=== PATIENT | female | born 1955 | race Caucasian/White ===

== ENCOUNTER 2019-04-17 07:30 | Inpatient (IN) | payer OTHER, SELFPAY ==
[2019-04-02 09:33] VITALS: BMI 29.1
[2019-04-17] VITALS (16 sets, daily range): BP systolic 102–135; BP diastolic 53–82; PULSE 53–94; RESP 14–20; TEMP 36.4–37.4; O2SAT 97–100; BMI 29.1
--- NOTE | 2019-04-17 06:00 | DI.RAD.S_ITS ---
PROCEDURE: XR KNEE RT 1TO2V INDICATIONS: status post Right TKA TECHNIQUE: 2 view(s) of the knee acquired. COMPARISON: None. FINDINGS: Bones: Patient is status post knee joint arthroplasty. Hardware components are in expected positions. Visualized bony structures are intact. Soft tissues: Overlying postoperative changes are noted. IMPRESSION: Normal alignment after right total knee arthroplasty. Dictated by: Jon Rain M.D. on 04/17/2019 at 11:17 Approved by: Jon Rain M.D. on 04/17/2019 at 11:17
[2019-04-17] MEDS: LACTATED RINGERS 1,000 ML 42 ML IV ×2 (08:37→09:58)
[2019-04-17] MEDS: ACETAMINOPHEN 325 MG TABLET 975 MG PO (08:38)
[2019-04-17] MEDS: PREGABALIN 75 MG CAPSULE PO (08:38)
[2019-04-17] MEDS: CELECOXIB 200 MG CAPSULE PO (08:38)
--- NOTE | 2019-04-17 08:45 | PM.PREOP ---
Pre-operative Note Interval Note History & Physical reviewed/Exam performed by Physician: Yes Changes to H&P: No
--- NOTE | 2019-04-17 08:48 | PM.OP.1 ---
Operative Date/Time/Diagnoses Date of procedure: 04/17/19 Time of procedure: 10:30 Pre-op diagnosis: Right knee osteoarthritis Post-op diagnosis: same Procedure & Clinicians Procedure: Right total knee arthroplasty Same procedure as scheduled: Yes Indications: The patient presents today for total knee arthroplasty after failure of conservative treatment. The nature of the procedure including the risks and benefits, alternatives, postoperative course and expected outcome were discussed and all questions answered. Consent was obtained. Operative site confirmed and marked. Surgeon: Jt Beltran Network Support Technician: Enrique Guillaume Anesthesia Type: General and Local Operative Notes Findings: Standard tibial and femoral cuts were made taking about 10 mm off the less affected lateral side. The MCL was deficient so an 11 mm constrained polyethylene insert was used which gave good stability. Patellar tracking was excellent. Prosthetic devices, grafts, tissues, transplants, or devices: [employer] Jourmoriah BCS: 5 femoral component, 4 tibial component, 11 mm BCS constrained polyethylene tray and 32 x 9 mm round patella Applied: implant(s) Estimated Blood Loss (mL): 10 Blood products transfused: none Tourniquet time (min): 75 Procedure in detail: The patient was taken to the operative suite and placed under anesthesia. The patient was given prophylactic antibiotics prior to surgery. The patient was also given tranexamic acid, 1 g, just prior to surgery for postoperative hemostasis. The lateral knee was prepped and the joint injected with 20 mL of 1% Lidocaine with epinephrine. The knee was then prepped and draped in usual sterile fashion. The leg was exsanguinated with an Esmarch dressing and the tourniquet raised to 250 torr. A 15 cm anterior incision was made. Next a medial trivector arthrotomy was made. The extensor mechanism was marked to ensure accurate repair. Initial exposing dissection was carried out medially and laterally. The knee was then flexed and the intramedullary femoral guide arina placed. The distal femoral cut was made in 6? of valgus at the +0 position. The femoral size was measured and the appropriate cutting block was then placed and the anterior, posterior and chamfer cuts made. The intramedullary tibial alignment arina was then placed. The guide was set to remove approximately 10 mm from the less affected lateral side. The proximal tibial cut was then made with an oscillating saw. All meniscus and bony debris was then removed. Posterior femoral osteophytes removed with a curved osteotome. Flexion extension gaps were checked. The flexion extension gaps were well balanced. However the MCL was deficient so there was some increased medial as opposed to lateral laxity. The soft tissues were then injected with a combination of 20 mL of half percent Marcaine with epinephrine and 20 mL of Exparel. The trial components were then placed. The knee was then extended and the patellar thickness was measured and a cut made removing approximately 9 mm of bone. The patella was then sized and drilled. Some excess lateral bone was excised and the patellofemoral ligament released. The knee went into full extension and flexion beyond 130?. There was good medial-lateral balance throughout motion with the 11 mm constrained implant. Patellar tracking was excellent. The trial components were removed and the knee was cleansed with Pulsavac irrigation and dried. The final components were cemented with high viscosity vacuum mixed bone cement with antibiotics. The joint was filled with a dilute Betadine solution. The knee was held in extension and the patellar clamped until the cement was adequately cured. The knee was then irrigated. The extensor mechanism was closed with 5 interrupted #1 Vicryl sutures and a running Quill suture at approximately 90 degrees of flexion. The joint was then injected with a combination of 1 g of tranexamic acid and 20 mL of quarter percent Marcaine with epinephrine. The subcutaneous tissue was closed with 2 0 Vicryl. The skin was closed with absorbable subcuticular sutures and surgical adhesive. An Aquacel dressing and Doug wrap were then applied. The patient tolerated the procedure well and was returned to recovery room in good condition. Complications: none Post-operative Condition: stable Disposition: PACU Plan for aftercare: [facility] protocol for total knee arthroplasty.
[2019-04-17] MEDS: CEFAZOLIN 2 GM/100 ML FROZ.PIGGY IV ×2 (08:56→18:01)
[2019-04-17] MEDS: LIDOCAINE 1% W/EPI 20 ML INJ (09:15)
[2019-04-17] MEDS: TRANEXAMIC ACID 1,000 MG VIAL 1000 MG INJ (09:16)
--- NOTE | 2019-04-17 09:25 | SUR.OPER ---
Supine on padded OR bed. Pillow under head, arms secured on padded armboards <90 degree abduction. Safety belt across torso. Non-operative leg secured with tape over blanket over lower leg. Operative leg secured in DeMayo/Aleks positioner. Foam padded brace at thigh of operative leg.
[2019-04-17] MEDS: BUPIVACAINE 0.25% W/ EPI (PF) 40 ML, BUPIVACAINE LIPOSOME 266 MG, SODIUM CHLORIDE 0.9% ... INJ (09:36)
[2019-04-17] MEDS: BUPIVACAINE 0.25% W/ EPI (PF) 20 ML, TRANEXAMIC ACID 1,000 MG, SODIUM CHLORIDE 0.9% 10 ML INJ (09:37)
[2019-04-17] MEDS: SODIUM CHLORIDE IRRIG SOLUTION 250 ML, POVIDONE-IODINE SPONGE STICKS 1 APPLIC IRR (09:41)
--- NOTE | 2019-04-17 11:20 | SUR.PHASEI ---
Normal pacu stay. Transported to room 221 on room air by shalonda. Pt left in stable condition.
[2019-04-17] MEDS: LACTATED RINGERS 1,000 ML 125 ML IV ×2 (12:15→20:38)
--- NOTE | 2019-04-17 12:37 | PC.NURSE ---
Addendum entered by Verito Yanez R.N. 04/17/19 14:35: GI -pt is hungry and janeth juice and crackers, added sandwich and applesauce and given scheduled ibuprofen for discomfort 3 on scale 0/10. Original Note: POST OP ARRIVAL 1130 - pt arrived via bed alert, states no discomfort, does have limited sensation r thigh, to calf, able to wiggle toes on command, hr 56, ra 99%, scd's placed, aquacell w/brenda wrap over cdi, ice pack at knee, + bt, denies nausea, no flatus yet, started with ice chips and then juice and crackers.
[2019-04-17] MEDS: IBUPROFEN 400 MG TABLET PO ×3 (13:48→20:38)
--- NOTE | 2019-04-17 14:39 | PT.IIE ---
Current Diagnoses Unilateral primary osteoarthritis, right knee (04/17/19) Unilateral post-traumatic osteoarthritis, right knee (04/17/19) Other tear of medial meniscus, current injury, right knee, initial encounter (04/17/19) Surgery Performed Operation Date: 04/17/19 08:45 Actual Procedures p Total Knee Arthroplasty(Right) - Jt Beltran MD Surgical History (Last Updated 04/02/19 @ 09:48 by Nancy Lakhani RN) H/O: section (Acute) Hx of bariatric surgery (Acute ~12/2017) Hx of bilateral cataract extraction (Acute) Hx of breast surgery (Acute) Hx of eye surgery (Acute) Hx of foot surgery (Acute) Medical History (Last Updated 04/11/19 @ 12:35 by Nancy Lakhani RN) HLD (hyperlipidemia) (Acute) HTN (hypertension) (Acute) Mild carotid artery disease (Acute) Pericardial cyst (Acute ~2018) Skin cancer of face (Acute) Sleep apnea (Acute) Physical Therapy Inpatient Evaluation/Re-Eval M1 PT/OT-IP Prior Functional Status Start: 04/17/19 16:29 Freq: NEEDED Status: Active Protocol: Document 04/17/19 14:39 AB (Rec: 04/17/19 16:45 AB [id number]) Medical Review Prior Functional Status Medical History Reviewed No Communication able to make needs known Mobility and Gait pt stated that she is independent with all mobilities and ambulation without AD Social History Household Members none Living Arrangements House Number of Floors (Floors) Two Floors Number of Stairs To Enter/Railing? 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 Afterwards, friends will be able to assist with and can stay if needed. M2 PT-IP Current Condition Start: 04/17/19 16:29 Freq: NEEDED Status: Active Protocol: Document 04/17/19 14:39 AB (Rec: 04/17/19 16:45 AB [id number]) Physical Therapy Current Condition Current Condition Evaluation Date 04/17/19 Treatment Diagnosis s/p R TKA; difficulty in walking Onset Date 04/17/2019 Weight Bearing Status Weight Bearing Status Weight Bear as Tolerated Allowed Weight Bearing Amount (enter % WBAT RLE or #) (%) M3 PT-IP Subjective Start: 04/17/19 16:29 Freq: NEEDED Status: Active Protocol: Document 04/17/19 14:39 AB (Rec: 04/17/19 16:45 AB [id number]) Subjective Physical Therapy Visit Type Type Initial Evaluation Visit Start Time 14:39 Visit Stop Time 15:38 Total Visit Minutes 59 Number of LEATHER TACKER Visits 0 Physical Therapy Visit Comments Patient Comments agreeable to do PT Therapy Pain Assessment Pain When Pain Assessed At Rest Pain Present Pain Present Pain Reported Location Right Knee Intensity 4 Scale Used Numeric (1 - 10) Pain Management Techniques Apply Cold,Re-positioning, Timing of Activity with Medications M4 PT-IP Mobility and Gait Start: 04/17/19 16:29 Freq: NEEDED Status: Active Protocol: Document 04/17/19 14:39 AB (Rec: 04/17/19 16:45 AB [id number]) PT-Bed Mobility Assessment Supine to Sit Supine to Sit Standby Assistance Sit to Supine Sit to Supine Minimal Assistance Scooting Scooting to Edge of Bed Standby Assistance PT-Transfer Assessment Sit to and From Stand Sit to and from Stand Minimal Assistance,1 Person Assistance,Use of Upper Extremities Equipment Transfer Assistive Device Gait Belt,Front Wheeled Walker Orthotic/Prosthetic Devices or Brace: No Transfers Transfer Destination Bedside Commode Transfer Technique Stand Step Pivot Transfer Ability Level of Assist Moderate Assistance,1 Person Assistance,Use of Upper Extremities Comments Mobility Comments completed supine to sit SBA and was able to sit on EOB SBA . postiioned on EOB SBA. completed sit to stand from EOB min A and cues. pt unable to control her bladder and stated that she cannot feel anything in there. instructed to sit back on bed. positioned bedside commode next to bed. pt completed sit to stand again min A and completed stand step transfer using FWW mod A and cues. asked NAC for assistance. assisted pt with hygiene care and dressing. completed sit to stand from the bedside commode min A and cues; was able to maintain standing min A and cues while completing hygiene care and brief management. pt completed step transfer to the bed using FWW mod A and cues. Cleared floor for safe ambulation. pt agreed to ambulate in room an dcompleted ~ 20 ft using FWW. slight R knee buckling towards end stance and cued to recruit R quads. pt requested to go back to bed. and completed sit to supine min A. positioned pt in bed. call light and table placed within reach. ice pack provided. Gait Assessment Gait Gait Assistance Required: Moderate Assistance,1 Person Assist Distance (Feet) 20 Able to Maintain Weight Bearing Status No During Gait Assistive Devices Assistive Device Gait Belt,Front Wheeled Walker Orthotic/Prosthetic Devices or Brace: No Gait Deviations General Gait Pattern Antalgic,Decreased Stride Length,Decreased Feet Clearance,Step-to Gait Factors Limiting Gait Function Factors Limiting Gait Function Decreased Activity Tolerance, Decreased Strength,Limited Range of Motion,Pain,Poor Balance,Poor Safety Awareness PT-Balance Assessment Sitting Balance and Reactions Static Sitting Balance Ability Good Dynamic Sitting Balance Ability Good Standing Balance and Reactions Static Standing Balance Ability Fair Dynamic Standing Balance Ability Fair Device Used FWW M5 PT-IP Objective Assessments Start: 04/17/19 16:29 Freq: NEEDED Status: Active Protocol: Document 04/17/19 14:39 AB (Rec: 04/17/19 16:45 AB [id number]) Orientation Orientation/Cognition Level of Alertness Alert Orientation Name,Place,Situation Gross Range of Motion Lower Extremity ROM Assessment Right Impaired Impairments R knee flexion ~ 70 deg Strength Lower Extremity Strength Assessment Right Impaired Hip 4-/5 Knee 3+/5 Coordination Assessment Gross Coordination Gross Coordination WNL Sensation Assessment Comments Sensation Comments still c/o numbness on buttocks are Muscle Tone Muscle Tone WNL Yes M6 PT-IP Treatment Start: 04/17/19 16:29 Freq: NEEDED Status: Active Protocol: Document 04/17/19 14:39 AB (Rec: 04/17/19 16:45 AB [id number]) Physical Therapy Treatment Education Education Provided Precautions,Weight Bearing Status,Post-Op Packet,Safety M7 PT-IP Assessment and Plan Start: 04/17/19 16:29 Freq: NEEDED Status: Active Protocol: Document 04/17/19 14:39 AB (Rec: 04/17/19 16:45 AB [id number]) PT Summary Assessment and Plan Potential Rehabilitation Potential Good Status of Condition at Evaluation Stable Summary Impairments Pain,ROM,Strength,Balance, Coordination,Sensation,Tone, Cognition,Bed Mobility, Transfers,Gait,Activity Tolerance Assessment Summary pt requiring min to mod A with mobility using FWW. plans to go home with daughte to assist. will conduct caregiver training when appropriate as well as stair climbing training. pt just had surgery this morning and will have to assess mobility farther to determine d/c plan. Goals Bed Mobility Goal Independent Transfer Goal Independent,Front Wheeled Walker Gait Goal Independent,Front Wheel Walker Gait Distance 200 Other Goals up/down 7 steps 1 rail SBA Days to Meet Goals 5 Frequency of Treatment Frequency Of Treatment Twice a Day Treatment Plan Physical Therapy Treatment Plan Bed Mobility Training,Transfer Training,Gait Training, Therapeutic Exercise,Balance Retraining,Post Op Education, Discharge Planning,Hot or Cold Pack,Neuromuscular Re-ed, Coordination Retraining,Manual Therapy Other Recommendations and Next Treatment ambulation, caregiver training Focus , stair climbing training Recommendations To Nursing Amount of Assist Needed 1 Person Assist Discharge Recommendations PT Discharge Recommendations Home with Assistance, Outpatient PT Transportation Needs at Discharge Private Vehicle
[2019-04-17] MEDS: ACETAMINOPHEN 325 MG TABLET 650 MG PO ×2 (15:01→20:38)
[2019-04-17] MEDS: OXYCODONE IR 10 MG TABLET PO ×2 (18:03→22:00)
[2019-04-17] MEDS: ASPIRIN EC 81 MG TABLET PO (20:39)
[2019-04-18] MEDS: IBUPROFEN 400 MG TABLET PO ×4 (00:06→12:50)
[2019-04-18] MEDS: CEFAZOLIN 2 GM/100 ML FROZ.PIGGY IV (00:09)
[2019-04-18] MEDS: OXYCODONE IR 10 MG TABLET PO ×5 (01:39→13:54)
[2019-04-18 04:05] VITALS: BP 120/88; PULSE 73; RESP 16; TEMP 36.9; O2SAT 100
[2019-04-18] MEDS: LACTATED RINGERS 1,000 ML 125 ML IV (04:23)
[2019-04-18] MEDS: PANTOPRAZOLE 40 MG TABLET PO (06:00)
[2019-04-18 06:43] LABS: Hemoglobin 12.9 g/dL (12.0-16.0)
[2019-04-18] MEDS: ACETAMINOPHEN 325 MG TABLET 650 MG PO ×2 (07:30→15:20)
[2019-04-18 08:00] VITALS: BP 111/47; PULSE 65; RESP 16; TEMP 36.7; O2SAT 99
[2019-04-18] MEDS: BROMFENAC 1 EACH EYE-LEFT (08:51)
[2019-04-18] MEDS: ASPIRIN EC 81 MG TABLET PO (08:53)
--- NOTE | 2019-04-18 09:09 | CM.DANOTE ---
DCP: Case received, EMR reviewed and met with patient. Introduced self and role. Was able to meet with patient, she was sitting up on the bed getting ready to use the restroom. Obtained brief history regarding baseline activity and living situation. DCP assessment completed with information currently available. Patient is a 63 year old female who admitted yesterday morning to the care of the orthopedic team. PCP: [facility]. Payer: confirmed: [employer]. Patient came to the hospital for a surgical procedure. She had right knee surgery. Patient has history of osteoarthritis, as well as DJD. Patient is employed at [employer] in [place], for this is an L[employer]I claim. Patient is alert and oriented. Was getting ready to get up to use walker to go to the restroom. Patient lives in [place], and lives alone. She has her daughter, Estefany, who will be assisting her at home, as well as friends. P: DCP to continue to follow and be available for any needs. She will be working with P.T. Patient should be able to go home when she is medically stable and cleared by P.T. Belia Jones RN/Animal Shelter Supervisor
--- NOTE | 2019-04-18 09:28 | PC.NURSE ---
Addendum entered by Verito Yanez R.N. 04/18/19 11:01: MS/PAIN - up with phys therapy, using fww, ambul into hallway, ret to chair, pt states pain 6 on scale 0/10, asking for medication, given 10mg po oxycodone now, sat in chair briefly, stated she can't get comfortable, req back bed, adjusted chair and pillow support and enc to stay oob if possible, call light available. Original Note: AM NOTE - pt is awake, asking for pain medications before breakfast, states r knee and thigh discomfort 6 on scale 0/10, aquacell w/brenda wrap over cdi, denies numbness, +pp, ankle waves and foot pumps indep, scd on, denies nausea, given 10mg oxycodone with tylenol with prune juice and crackers, ice pack, +bt, no nausea, passing flatus, hr 78, ra 98%, after breakfast, continued with scheduled ibuprofen, assist x 1 person up w/fww, gait steady, ambul to br, adl at sink, preferred ret to bed
--- NOTE | 2019-04-18 09:35 | PT.IPTN ---
Current Diagnoses Unilateral primary osteoarthritis, right knee (04/17/19) Unilateral post-traumatic osteoarthritis, right knee (04/17/19) Other tear of medial meniscus, current injury, right knee, initial encounter (04/17/19) Surgery Performed Operation Date: 04/17/19 08:45 Actual Procedures p Total Knee Arthroplasty(Right) - Jt Beltran MD Physical Therapy Treatment Note M2 PT-IP Current Condition Start: 04/17/19 16:29 Freq: NEEDED Status: Active Protocol: Document 04/17/19 14:39 AB (Rec: 04/17/19 16:45 AB [id number]) Physical Therapy Current Condition Current Condition Evaluation Date 04/17/19 Treatment Diagnosis s/p R TKA; difficulty in walking Onset Date 04/17/2019 Weight Bearing Status Weight Bearing Status Weight Bear as Tolerated Allowed Weight Bearing Amount (enter % WBAT RLE or #) (%) M3 PT-IP Subjective Start: 04/17/19 16:29 Freq: NEEDED Status: Active Protocol: Document 04/18/19 09:35 AB (Rec: 04/18/19 12:30 AB [id number]) Subjective Physical Therapy Visit Type Type Treatment Note Visit Start Time 09:35 Visit Stop Time 10:33 Total Visit Minutes 58 Number of DEPUTY GENERAL COUNSEL Visits 0 Physical Therapy Visit Comments Patient Comments pt agreeable to do PT Therapy Pain Assessment Pain When Pain Assessed At Rest Pain Present Pain Present Pain Reported Location Right Knee Intensity 6 Scale Used Numeric (1 - 10) Pain Management Techniques Apply Cold,Re-positioning, Timing of Activity with Medications M4 PT-IP Mobility and Gait Start: 04/17/19 16:29 Freq: NEEDED Status: Active Protocol: Document 04/18/19 09:35 AB (Rec: 04/18/19 12:30 AB [id number]) PT-Bed Mobility Assessment Supine to Sit Supine to Sit Standby Assistance Scooting Scooting to Edge of Bed Standby Assistance PT-Transfer Assessment Sit to and From Stand Sit to and from Stand Contact Guard Assistance, Minimal Assistance,1 Person Assistance,Use of Upper Extremities Equipment Transfer Assistive Device Gait Belt,Front Wheeled Walker Orthotic/Prosthetic Devices or Brace: No Transfers Transfer Destination Chair Transfer Technique ambulated using FWW Transfer Ability Level of Assist Contact Guard Assistance, Minimal Assistance,1 Person Assistance,Use of Upper Extremities Comments Mobility Comments completed supine to sit SBA; sit to stand CGA to min A and cues for techniques. ambulated towards the chair initial min A using FWW and cues for quad activation and towards the end was able to complete with CGA and cues. pt ambulated towards the stairs ~ 125 ft using FWW SBA to CGA and cues. completed stair climbing. ambulated back to room using FWW SBA to CGA. agreed to sit up on chair . positioned on chair. call light and table placed within reach. informed pt regarding caregiver training with daughter. pt stated that she will call her daughter to set up a 230 PT appointment. informed nurse and PA that pt will be seen for PT again for caregiver training prior to d/ c. Gait Assessment Gait Gait Assistance Required: Standby Assistance,Contact Guard Assist Distance (Feet) 125 Able to Maintain Weight Bearing Status Yes During Gait Assistive Devices Assistive Device Gait Belt,Front Wheeled Walker Orthotic/Prosthetic Devices or Brace: No Gait Deviations General Gait Pattern Antalgic,Decreased Stride Length,Decreased Feet Clearance Factors Limiting Gait Function Factors Limiting Gait Function Decreased Activity Tolerance, Decreased Strength,Pain,Poor Balance,Poor Safety Awareness Comments Gait Comments ambulated 125+100 ft using FWW SBA to CGA and cues. Stair Climbing Assessment Evaluation Level of Assist On Stairs Contact Guard Assistance, Moderate Assistance,1 Person Assistance Devices Stair Climbing Assistive Devices Straight Cane,Left Railing, Right Railing Technique/Endurance Stair Climbing Direction Ascend and Descend Stair Climbing Technique Step to Step Number of Steps Climbed 3 Stair Climbing Set # Repetitions (reps) 3 Comments Stair Climbing Comments completed up/down 3 steps using B rails CGA; completed holding with B hands on R rail CGA. pt then stated that she forgot to mention that she has 3 steps without rails to get inside of the house as well. completed up/down platform step using SPC and EDUCATIONAL ASSISTANT TEACHER mod A and max cues and then completed up/down 3 steps SPC and EDUCATIONAL ASSISTANT TEACHER mod A to max A and cues. M5 PT-IP Objective Assessments Start: 04/17/19 16:29 Freq: NEEDED Status: Active Protocol: Document 04/17/19 14:39 AB (Rec: 04/17/19 16:45 AB [id number]) Orientation Orientation/Cognition Level of Alertness Alert Orientation Name,Place,Situation Gross Range of Motion Lower Extremity ROM Assessment Right Impaired Impairments R knee flexion ~ 70 deg Strength Lower Extremity Strength Assessment Right Impaired Hip 4-/5 Knee 3+/5 Coordination Assessment Gross Coordination Gross Coordination WNL Sensation Assessment Comments Sensation Comments still c/o numbness on buttocks are Muscle Tone Muscle Tone WNL Yes M6 PT-IP Treatment Start: 04/17/19 16:29 Freq: NEEDED Status: Active Protocol: Document 04/18/19 09:35 AB (Rec: 04/18/19 12:30 AB [id number]) Physical Therapy Treatment Exercises Exercises Quad Sets,Heel Slides Education Education Provided Precautions,Weight Bearing Status,Safety M7 PT-IP Assessment and Plan Start: 04/17/19 16:29 Freq: NEEDED Status: Active Protocol: Document 04/18/19 09:35 AB (Rec: 04/18/19 12:30 AB [id number]) PT Summary Assessment and Plan Potential Rehabilitation Potential Good Summary Impairments Pain,ROM,Strength,Balance, Coordination,Sensation,Tone, Cognition,Bed Mobility, Transfers,Gait,Activity Tolerance Progress Towards Goals Slow Progress due to Pain Assessment Summary pt requiring SBA to CGA with ambulation using FWW; requires CGA to mod A for stair climbing and caregiver training has to be conducted prior to d/c. pt set up 230 pm PT appointment with pt's daughter. will assess progress. pt plans to go home today if daughter will be able to assist her safely. Goals Bed Mobility Goal Independent Transfer Goal Independent,Front Wheeled Walker Gait Goal Independent,Front Wheel Walker Gait Distance 200 Other Goals up/down 7 steps 1 rail SBA Days to Meet Goals 5 Frequency of Treatment Frequency Of Treatment Twice a Day Treatment Plan Physical Therapy Treatment Plan Bed Mobility Training,Transfer Training,Gait Training, Therapeutic Exercise,Balance Retraining,Post Op Education, Discharge Planning,Hot or Cold Pack,Neuromuscular Re-ed, Coordination Retraining,Manual Therapy Other Recommendations and Next Treatment ambulation, caregiver training Focus , stair climbing training Recommendations To Nursing Amount of Assist Needed 1 Person Assist Discharge Recommendations PT Discharge Recommendations Home with Assistance, Outpatient PT Transportation Needs at Discharge Private Vehicle
--- NOTE | 2019-04-18 10:53 | PM.DS.1 ---
History of Present Illness History of Present Illness Date Patient Seen: 04/18/19 Time Patient Seen: 10:53 Chief complaint: RT TKA 04/17 Narrative: Patient's pain is moderate. No fever chills. No nausea vomiting. Her daughter will be staying with her. She has practice stairs with physical therapy. Physical therapy is going to work with her daughter later this afternoon and patient will be discharged home today. Discharge Providers Provider Date of admission: 04/17/19 07:30 Discharge Date: 04/18/19 Consults: 04/17/19 11:30 Consult to Discharge Planning Routine Comment: Consult to Physical Therapy Evaluate & Treat Comment: Physician Instructions: postop TKA protocol Consult to Respiratory Therapy Evaluate & Treat Comment: Physician Instructions: Evaluate and treat Discharge provider: Enrique Guillaume PA-C Summary Hospital Course Discharge Diagnosis: Status post right knee total knee arthroplasty due to severe right knee osteoarthritis Hospital Course: [address] [address] Operative Note Patient: Kayla Crockett#: [id number] : 5Acct:[id number] Age/Sex: 63 / F Date of Service: 04/17/19 Provider: Jt Beltran MD Operative Date/Time/Diagnoses Date of procedure: 04/17/19 Time of procedure: 10:30 Pre-op diagnosis: Right knee osteoarthritis Post-op diagnosis: same Procedure & Clinicians Procedure: Right total knee arthroplasty Same procedure as scheduled: Yes Indications: The patient presents today for total knee arthroplasty after failure of conservative treatment. The nature of the procedure including the risks and benefits, alternatives, postoperative course and expected outcome were discussed and all questions answered. Consent was obtained. Operative site confirmed and marked. Surgeon: Jt Beltran [employer] Assistant: Enrique Guillaume Anesthesia Type: General and Local Operative Notes Findings: Standard tibial and femoral cuts were made taking about 10 mm off the less affected lateral side. The MCL was deficient so an 11 mm constrained polyethylene insert was used which gave good stability. Patellar tracking was excellent. Prosthetic devices, grafts, tissues, transplants, or devices: [employer] BCS: 5 femoral component, 4 tibial component, 11 mm BCS constrained polyethylene tray and 32 x 9 mm round patella Applied: implant(s) Estimated Blood Loss (mL): 10 Blood products transfused: none Tourniquet time (min): 75 Patient admitted to the hospital for right total knee arthroplasty. Patient consented to the same. Patient taken to the operating room underwent right total knee arthroplasty. Patient back in her room recovering well as in stable condition. Status at Discharge Cognitive/behavioral status at discharge: at baseline, oriented Functional status at discharge: uses cane/walker Overall status at discharge: patient is progressing back to baseline Time Spent with Patient Time spent: Less than 30 minutes Exam Vital Signs (past 8 hours): - 04/18/19 04:05 04/18/19 08:00 Temperature 98.5 F 98.0 F Pulse Rate 73 65 Respiratory Rate 16 16 Blood Pressure 120/88 111/47 L Pulse Oximetry 100 99 Oxygen Delivery Method Room Air Oxygen Flow Rate 0 Narrative Exam Narrative: Pleasant 63-year-old female resting comfortably in bedside chair in no apparent distress. Right knee dressing is clean, dry and intact. Right lower extremity is warm and dry. Motor function and sensation grossly intact. Objective Labs Result Diagrams: 04/18/19 06:30 Labs: Laboratory Results - last 24 hr 04/18/19 06:30 Hgb 12.9 Hct 38.0 Discharge Plan Discharge Plan Patient Disposition: Home Discharge comment: DC home today after PT Discharge orders & Medications Prescriptions: New hydroxyzine pamoate 25 mg Capsule 25 mg PO Q6HR PRN (Reason: Nausea) Qty: 30 RF: 0 Continued aspirin 81 mg Tablet,Delayed Release (Dr/Ec) 81 mg PO Q OTHER DAY RF: 0 bromfenac 0.09 % Drops 1 drp EYE-LEFT QAM RF: 0 amlodipine 5 mg Tablet 5 mg PO DAILY RF: 0 omeprazole 40 mg Capsule,Delayed Release(Dr/Ec) 40 mg PO DAILY RF: 0 Follow up/Referrals: Jt Beltran MD [Physician] - (Two weeks) Discharge Health Status Multidrug resistant organism: No MDRO Diet/Activity/Treatments Diet: Diet as Tolerated Activity: Weight-bearing as tolerated, 10 ankle pumps every hour while awake, 10 heel size every hour while awake, short 3-5 minute walk every hour while awake Cold/Heat Therapy: Ice as needed Other treatments: Ibuprofen 400 mg every 4 hours along with Tylenol 500 mg every 4 hours, aspirin 81 mg twice daily. Oxycodone as needed pain. Vistaril as needed muscle spasms, nausea Skin/Wound/Dressing Care Report to your healthcare provider any signs of infection, such as:: chills, fever, increased pain, unusual drainage and unusual redness Dressing: Keep clean and dry Visit Report/Discharge Packet Instructions: DI for Knee Replacement, DI for Prescription Opioid Use Stand Alone Forms: Surgery Discharge Quality VTE Deep Vein Thrombosis/Pulmonary Embolism Present on Admission: No
[2019-04-18 12:00] VITALS: BP 115/63; PULSE 67; RESP 16; TEMP 36.8; O2SAT 99
--- NOTE | 2019-04-18 14:30 | PT.IPTN ---
Current Diagnoses Unilateral primary osteoarthritis, right knee (04/17/19) Unilateral post-traumatic osteoarthritis, right knee (04/17/19) Other tear of medial meniscus, current injury, right knee, initial encounter (04/17/19) Surgery Performed Operation Date: 04/17/19 08:45 Actual Procedures p Total Knee Arthroplasty(Right) - Jt Beltran MD Physical Therapy Treatment Note M2 PT-IP Current Condition Start: 04/17/19 16:29 Freq: NEEDED Status: Discharge Protocol: Document 04/17/19 14:39 AB (Rec: 04/17/19 16:45 AB [id number]) Physical Therapy Current Condition Current Condition Evaluation Date 04/17/19 Treatment Diagnosis s/p R TKA; difficulty in walking Onset Date 04/17/2019 Weight Bearing Status Weight Bearing Status Weight Bear as Tolerated Allowed Weight Bearing Amount (enter % WBAT RLE or #) (%) M3 PT-IP Subjective Start: 04/17/19 16:29 Freq: NEEDED Status: Discharge Protocol: Document 04/18/19 14:30 AB (Rec: 04/18/19 16:44 AB [id number]) Subjective Physical Therapy Visit Type Type Treatment Note Visit Start Time 14:30 Visit Stop Time 15:12 Total Visit Minutes 42 Number of PLUMBER Visits 0 Physical Therapy Visit Comments Patient Comments pt agreeable to do PT. daughter present for training Therapy Pain Assessment Pain When Pain Assessed At Rest Pain Present Pain Present Pain Reported Location Right Knee Intensity 3 Scale Used Numeric (1 - 10) Pain Management Techniques Re-positioning,Timing of Activity with Medications M4 PT-IP Mobility and Gait Start: 04/17/19 16:29 Freq: NEEDED Status: Discharge Protocol: Document 04/18/19 14:30 AB (Rec: 04/18/19 16:44 AB [id number]) PT-Transfer Assessment Sit to and From Stand Sit to and from Stand Contact Guard Assistance,Use of Upper Extremities Equipment Transfer Assistive Device Gait Belt,Front Wheeled Walker Orthotic/Prosthetic Devices or Brace: No Transfers Transfer Destination Toilet Transfer Technique ambulated using FWW Transfer Ability Level of Assist Standby Assistance,Contact Guard Assistance,1 Person Assistance,Use of Upper Extremities Comments Mobility Comments pt sitting on chair and agreeable to do PT. daughter in room for caregiver training . educated daughter on how to use safety belt and how to assist pt. daughter was able to assist pt safely with transfers, ambulation and stair climbing. pt requested to use the toilet and ambulated to the toilet using FWW SBA. pt wants to sit on the toilet for awhile. call light positioned close to pt. informed nurse that pt is using the toilet . Gait Assessment Gait Gait Assistance Required: Standby Assistance,Contact Guard Assist Distance (Feet) 125 Able to Maintain Weight Bearing Status Yes During Gait Assistive Devices Assistive Device Gait Belt,Front Wheeled Walker Orthotic/Prosthetic Devices or Brace: No Gait Deviations General Gait Pattern Antalgic Factors Limiting Gait Function Factors Limiting Gait Function Decreased Activity Tolerance, Decreased Strength,Pain,Poor Balance,Poor Safety Awareness Comments Gait Comments completed ambulation using FWW 125 + 75 ft SBA to CGA. Stair Climbing Assessment Evaluation Level of Assist On Stairs Contact Guard Assistance, Moderate Assistance,1 Person Assistance Devices Stair Climbing Assistive Devices None,Straight Cane,Right Railing Technique/Endurance Stair Climbing Direction Ascend and Descend Stair Climbing Technique Step to Step Number of Steps Climbed 3 Stair Climbing Set # Repetitions (reps) 3 Comments Stair Climbing Comments educated daughter on how to assist pt with stair climbing. completed up/down first with bilateral rails and daughter assisted pt safely. completed again with pt holding on with both hands on R rail and pt also able to assist pt. completed up/down steps using SPC and COMBINATION WINDOW INSTALLER and daugther was able to assist pt safely. M5 PT-IP Objective Assessments Start: 04/17/19 16:29 Freq: NEEDED Status: Discharge Protocol: Document 04/17/19 14:39 AB (Rec: 04/17/19 16:45 AB [id number]) Orientation Orientation/Cognition Level of Alertness Alert Orientation Name,Place,Situation Gross Range of Motion Lower Extremity ROM Assessment Right Impaired Impairments R knee flexion ~ 70 deg Strength Lower Extremity Strength Assessment Right Impaired Hip 4-/5 Knee 3+/5 Coordination Assessment Gross Coordination Gross Coordination WNL Sensation Assessment Comments Sensation Comments still c/o numbness on buttocks are Muscle Tone Muscle Tone WNL Yes M6 PT-IP Treatment Start: 04/17/19 16:29 Freq: NEEDED Status: Discharge Protocol: Document 04/18/19 14:30 AB (Rec: 04/18/19 16:44 AB [id number]) Physical Therapy Treatment Education Education Provided Weight Bearing Status,Safety M7 PT-IP Assessment and Plan Start: 04/17/19 16:29 Freq: NEEDED Status: Discharge Protocol: Document 04/18/19 14:30 AB (Rec: 04/18/19 16:44 AB [id number]) PT Summary Assessment and Plan Potential Rehabilitation Potential Good Summary Impairments Pain,ROM,Strength,Balance, Coordination,Sensation,Tone, Cognition,Bed Mobility, Transfers,Gait,Activity Tolerance Progress Towards Goals Progressing Toward Goals Assessment Summary caregiver training conducted and daughter was able to assist pt safely. pt plans to go home today and daughter will assist pt. pt has outpt PT set up. Goals Bed Mobility Goal Independent Transfer Goal Independent,Front Wheeled Walker Gait Goal Independent,Front Wheel Walker Gait Distance 200 Other Goals up/down 7 steps 1 rail SBA 3 steps without rails using SPC/COMBINATION WINDOW INSTALLER CGA Days to Meet Goals 5 Frequency of Treatment Frequency Of Treatment Twice a Day Treatment Plan Physical Therapy Treatment Plan Bed Mobility Training,Transfer Training,Gait Training, Therapeutic Exercise,Balance Retraining,Post Op Education, Discharge Planning,Hot or Cold Pack,Neuromuscular Re-ed, Coordination Retraining,Manual Therapy Other Recommendations and Next Treatment ambulation, caregiver training Focus , stair climbing training Recommendations To Nursing Amount of Assist Needed 1 Person Assist Discharge Recommendations PT Discharge Recommendations Home with Assistance, Outpatient PT Transportation Needs at Discharge Private Vehicle
--- NOTE | 2019-04-18 16:22 | PC.NURSE ---
IV removed. discharge instruction given to patient. pt escorted by scientific technical writer to ED exit.
== END 2019-04-18 15:45 | disposition home or self-care (01) | DRG 302 ==
PROVIDERS: Admitting Provider Orthopaedic Surgery; Referring Provider Orthopaedic Surgery; Visit Provider Orthopaedic Surgery
PROC: 0SRC0JZ Replacement of Right Knee Joint with Synthetic Substitute, Open Approach (ICD-10-PCS; CPT 27447; principal; 2019-04-17 08:45)
DX: M17.11 Unilateral primary osteoarthritis, right knee (principal); I10 Essential (primary) hypertension; E78.5 Hyperlipidemia, unspecified; Z87.891 Personal history of nicotine dependence
CPT/HCPCS: 36415; 73560; 85014; 85018; 97110; 97116; 97162; 97530; C1776; C9290; J0690; J1100; J2250; J2274; J2405; J2704; J3010